=== PATIENT | female | born 1955 | race Caucasian/White ===

== ENCOUNTER 2020-03-03 10:29 | Outpatient (NON) | payer BC, SELFPAY ==
[2020-03-03 21:27] LABS: SARS-CoV-2 RNA PCR Negative
== END 2020-03-03 10:30 ==
PROVIDERS: PCP Family Medicine Adolescent Medicine; Visit Provider Family Medicine Adolescent Medicine
DX: R50.9 Fever, unspecified (principal); Z20.828 Contact with and (suspected) exposure to other viral communicable diseases
CPT/HCPCS: 87635; C9803; U0003

== ENCOUNTER → 2021-03-07 13:22 | Outpatient (CLI) | payer BC, SELFPAY ==
--- NOTE | ~2021-03-07 | MM_ITS ---
EXAMINATION: MM screening joycelyn BI w bre HISTORY: Screening mammogram, family history of breast cancer in her mother. TECHNIQUE: Craniocaudal and mediolateral oblique 3-D tomosynthesis images were obtained and synthetic 2-D images were generated. CAD analysis was submitted and interpreted. COMPARISON: 03/10/2015, 03/18/2014, 03/05/2014, 03/03/2013 BREAST PARENCHYMAL COMPOSITION: There are scattered areas of fibroglandular density. FINDINGS: There is no evidence of suspicious mass, calcification, or architectural distortion to sugg est malignancy in either breast. There has been no suspicious interval change. IMPRESSION: 1. No mammographic evidence of malignancy. 2. Recommend routine screening mammography in one year. BI-RADS Category 1: Negative Reviewed, dictated and finalized at location A.
== END ==
PROVIDERS: PCP Family Medicine; Visit Provider Obstetrics & Gynecology Gynecology
DX: Z12.31 Encounter for screening mammogram for malignant neoplasm of breast (principal)
CPT/HCPCS: 77063; 77067

== ENCOUNTER → 2022-03-08 10:34 | Outpatient (CLI) | payer BC, SELFPAY ==
--- NOTE | ~2022-03-08 | XR_ITS ---
EXAMINATION: XR knee RT 2V DATE: 03/08/2022 11:45 INDICATION: Other bursitis of knee, right knee. Medial right knee pain. TECHNIQUE: 2 views of right knee were obtained. COMPARISON: None. FINDINGS: Bone alignment is normal. No fracture. There is mild tricompartmental osteoarthritis charac terized by tiny osteophytes. No joint space narrowing. No knee joint effusion. IMPRESSION: 1. Mild right knee osteoarthritis. Reviewed, dictated and finalized at location B.
== END ==
PROVIDERS: PCP Family Medicine; Visit Provider Family Medicine
DX: M17.11 Unilateral primary osteoarthritis, right knee (principal)
CPT/HCPCS: 73560

== ENCOUNTER → 2022-03-31 14:58 | Outpatient (CLI) | payer BC, SELFPAY ==
--- NOTE | ~2022-03-31 | MM_ITS ---
EXAMINATION: MM screening joycelyn BI w bre HISTORY: Screening TECHNIQUE: Craniocaudal and mediolateral oblique 3-D tomosynthesis images were obtained and synthetic 2-D images were generated. CAD analysis was submitted and interpreted. COMPARISON: Comparison to multiple prior studies sequentially, with oldest reviewed study dated 03/03. BREAST PARENCHYMAL COMPOSITION: Breast composed of scattered areas of fibroglandular density FINDINGS: There is no evidence of suspicious mass, calcification, or architectural distortion to sugg est malignancy in either breast. There has been no suspicious interval change. IMPRESSION: 1. No mammographic evidence of malignancy. 2. Recommend routine screening mammography in one year. BI-RADS Category 1: Negative Reviewed, dictated and finalized at location A.
== END ==
PROVIDERS: PCP Family Medicine; Visit Provider Obstetrics & Gynecology Gynecology
DX: Z12.31 Encounter for screening mammogram for malignant neoplasm of breast (principal)
CPT/HCPCS: 77063; 77067

== ENCOUNTER 2022-04-17 11:00 | Outpatient (RCR) | payer BC, SELFPAY ==
--- NOTE | 2022-03-21 10:31 | PTOPEVAL ---
PHYSICAL THERAPY EVALUATION AND PLAN OF CARE Thank you for referring Maria C Cormier to [facility].? The patient is scheduled to be seen for therapy? 2x/week for 4 weeks. Please review, sign, date and return this plan of care MIRZA. I agree with and certify that the following plan of care is medically necessary. Referring Physician Date Attending Provider: Radha Hernandez MD Diagnosis right knee pain Onset 12/2021 Subjective Information no specific injury. Cannot Query Text:As Reported By Patient/ palpate the pain- feels deep Family into the joint. Was doing 3- 4mile walks every other day. Did have a day in the spring she walked 4 miles on the treadmill and then worked out in the yard. After some time she started to experience some generalized knee pain. Symptoms have been persistent and sleeping is now becoming difficult. Uses a sleeve knee brace that helps her to feel more supported. Sometimes standing feels better than sitting. Bending and prolonged straight knee are painful. Stairs and squatting are painful. has been trying to stay somewhat active around her house and she did try to walk on the treadmill for 30minutes. Right Knee(s) Reported Pain Level 7 Pain Description Aching Pain Frequency Chronic,Continuous Lowest Pain Intensity 5 Greatest Pain Intensity 9 Pain Aggravating Factors Prolonged Position Knee Range of Motion Right Knee Flexion Range of Motion - Active 130 Knee Extension Range of Motion - Active 0 Query Text: Lower Extremity Muscle Strength Testing Hip Strength Right Hip Flexion Strength 4+ Good + Hip Extension Strength 3+ Fair + Hip Abduction Strength 3 Fair Knee Strength Right Knee Flexion Strength 4 Good Knee Extension Strength 4 Good Muscle Length Testing Muscle Length Testing Gastrocnemius Length (R) Mild Tightness,(L) Mild Tightness Posture Posture Standing Position Hip Posture (R) Internally Rotated Knee Posture (R) Genu Valgus Ankle/Foot Posture (L) Neutral,(R) Neutral Palpation Assessment Palpation
--- NOTE | 2022-04-10 12:40 | PCPTNOTE ---
Pt's treatment and documentation completed by PT student Josef Walters, under supervision.
--- NOTE | 2022-04-17 11:34 | PTOPEVAL ---
PHYSICAL THERAPY DISCHARGE NOTE Thank you for referring Maria C Cormier to [facility].? Please review, sign, date and return this plan of care MIRZA. I agree with and certify that the following plan of care is medically necessary. Referring Physician Date Attending Provider: Radha Hernandez MD Diagnosis right knee pain Onset 12/2021 Subjective Information States that in general with Query Text:As Reported By Patient/ therapy she felt she was able Family to do more with less pain. Then about 10 days ago she was working in the yard and she thinks she might have twisted the knee and since then it has been significantly more pain and burning and keeping her up at night. Self Report Pain Assessment Right Knee(s) Reported Pain Level 8 Pain Description Aching,Heavy,Throbbing Pain Frequency Chronic Pain Aggravating Factors ADL's,Bending,Walking Pain Behaviors Grimacing Additional Pain Comments Patient reports pain is deep and medial to patella. Pain Score Pain Score 8: Self Report Additional Pain Score Comments patient did not give a pain rating this date Interventions Used Interventions Used By Clinicians Exercise,Manual Therapy Techniques Lower Extremity Range of Motion Knee Range of Motion Right Knee Flexion Range of Motion - Active 130 Knee Extension Range of Motion - Active -10 Query Text: Knee Range of Motion Comments unable to allow knee to go straight without significant pain Lower Extremity Muscle Strength Testing Hip Strength Right Hip Flexion Strength 5 Normal Hip Extension Strength 4- Good - Hip Abduction Strength 4- Good - Knee Strength Right Knee Flexion Strength 4+ Good + Knee Extension Strength 4 Good Knee Strength Comments fair quad set - increased pain with quad set Special Tests-Lower Extremity Knee Special Tests Magda's Negative Right Anterior Drawer Positive Right Posterior Drawer Negative Right Valgus Stress Test Knee at 0 Degrees Positive Right Varus Stress Test Knee at 0 Degrees Negative Left Extremity Circumference Assessment Circumference Assessment Location Right Body Part Knee Site Descriptor (Shinglehouse) apex of patella Circumference (cm) 19 Noninvolved Side Circumference (cm)
== END 2022-04-18 08:18 | disposition home or self-care (01) ==
LOC: ANHPT 11:00
PROVIDERS: PCP Family Medicine; Referring Provider Family Medicine; Visit Provider Family Medicine
DX: M25.569 Pain in unspecified knee (principal); M70.51 Other bursitis of knee, right knee
CPT/HCPCS: 97014; 97110; 97112; 97140; 97161; 97530; G0283

== ENCOUNTER 2022-05-12 10:27 | Outpatient (CLI) | payer BC, SELFPAY ==
--- NOTE | ~2022-05-12 | MR_ITS ---
EXAMINATION: MR knee RT wo con DATE: 05/12/2022 11:07 INDICATION: Right knee pain and swelling. TECHNIQUE: Magnetic resonance imaging (MRI) of the right knee was performed without intravenous contr ast. Sequences included axial PD-weighted FS FSE, coronal PD-weighted FSE and PD-weighted FS FSE, sag ittal PD-weighted FSE, and sagittal T2-weighted FS FSE. COMPARISON: Right knee radiographs 03/08/2022 FINDINGS: Medial compartment: There is a radial tear involving body and posterior horn of medial meniscus. There is shallow partial -thickness cartilage loss of tibial condyle and femoral condyle. Tiny osteophytes are noted. Lateral compartment: Lateral meniscus is normal. There is cartilage surface irregularity of tibial condyle and femoral con dyle. There are tiny osteophytes. Patellofemoral compartment: There is deep partial thickness cartilage loss of patellar median ridge, medial facet, and lateral fa cet with mild subchondral edema-like marrow signal intensity. There is cartilage surface irregularity of trochlea. Osteophytes are noted. Ligaments and tendons: The anterior and posterior cruciate ligaments are normal. There are changes of prior sprains of media l collateral ligament and fibular collateral ligament characterized by thickening and increased signa l intensity proximally. There is mild patellar tendinopathy. Fluid: There is no knee joint effusion. There is a small Schafer cyst. There is a 1.9 x 1.3 x 3.1 cm ganglion cyst posterior to distal femoral metaphysis that is contiguous with the Schafer cyst. IMPRESSION: 1. Moderate chondrosis of patellofemoral compartment and mild chondrosis of medial and lateral compar tments. 2. Tear of medial meniscus. 3. Small Schafer cyst. Reviewed, dictated and finalized at location A. IMPRESSION: 1. Moderate chondrosis of patellofemoral compartment and mild chondrosis of med ial and lateral compartments. 2. Tear of medial meniscus. 3. Small Schafer cyst.
== END 2022-05-12 10:28 | disposition home or self-care (01) ==
LOC: ANHIMG 10:33
PROVIDERS: PCP Family Medicine; Visit Provider Family Medicine
DX: M23.91 Unspecified internal derangement of right knee (principal); M71.21 Synovial cyst of popliteal space [Baker], right knee; M25.761 Osteophyte, right knee
CPT/HCPCS: 73721

== ENCOUNTER → 2023-04-16 13:16 | Outpatient (CLI) | payer MEDICARE, SELFPAY ==
--- NOTE | ~2023-04-16 | DEXA_ITS ---
Bone Density Report Name: EDEL HARVEY Age: 67 Sex: Female Ethnicity: White Date of : 1955 Indication: osteopenia; parental hip fracture; postmenopausal Referring Provider: SANTA CONDE Study: Bone densitometry was performed. Exam Date: April 16, 2023 Accession number: [id number] Bone Density: Region BMD T-score Z-score Classification AP Spine (L1-L4) 0.770 -2.5 -0.7 Osteoporosis Femoral Neck (Left) 0.700 -1.3 0.2 Osteopenia Total Hip (Left) 0.839 -0.8 0.4 Normal Femoral Neck (Right) 0.673 -1.6 0.0 Osteopenia Total Hip (Right) 0.792 -1.2 0.0 Osteopenia Total Hip Mean 0.816 -1.0 0.2 Normal World Health Organization criteria for BMD impression classify patients as: Normal (T-score at or above -1.0), Osteopenia (T-score between -1.0 and -2.5), or Osteoporosis (T-score at or below -2.5). 10-year Fracture Risk: FRAX not reported because: Some T-score for Spine Total or Hip Total or Femoral Neck at or below -2.5 Previous Exams: Region Exam Age BMD T-score BMD Change BMD Change Date g/cm2 vs Baseline vs Previous AP Spine(L1-L4) 04/16/2023 67 0.770 -2.5 -0.104* -0.075* 11/09/2008 53 0.845 -1.8 -0.029* -0.027* 09/14/2006 51 0.872 -1.6 -0.002 -0.002 08/18/2005 50 0.874 -1.6 Total Hip(Left) 04/16/2023 67 0.839 -0.8 -0.138* -0.054* 11/09/2008 53 0.893 -0.4 -0.083* 0.002 09/14/2006 51 0.891 -0.4 -0.085* -0.085* 08/18/2005 50 0.977 0.3 Total Hip(Right) 04/16/2023 67 0.792 -1.2 -0.157* -0.080* 11/09/2008 53 0.872 -0.6 -0.077* -0.032* 09/14/2006 51 0.903 -0.3 -0.045* -0.045* 08/18/2005 50 0.949 0.1 *Denotes significance at 95% confidence level, LSC for AP Spine = 0.022 g/cm2, LSC for Total Hip = 0.027 g/cm2 Clinical Information Provided by Patient: Parent has had a hip fracture Has used the following medications: Vitamin D, MULTI VITAMIN Patient maximum height was 62.3 Menopause Age: 46 Does not regularly consume dairy products Onset of menses at age 13 Number of children 2 Impression: The patient has osteoporosis, based on the Total Spine T-score. The patient has risk factors, including: parental hip fracture. The BMD for the AP Spine(L1-L4) decreased, changing by -0.075 since the last DXA exam. The BMD for the Total Hip(Left) decreased, jaspreet
--- NOTE | ~2023-04-16 | MM_ITS ---
EXAMINATION: MM screening joycelyn BI w bre HISTORY: Screening mammogram, family history of breast cancer in her mother. TECHNIQUE: Craniocaudal and mediolateral oblique 3-D tomosynthesis images were obtained and synthetic 2-D images were generated. CAD analysis was submitted and interpreted. COMPARISON: 03/31/2022, 03/07/2021, 03/10/2015 BREAST PARENCHYMAL COMPOSITION: There are scattered areas of fibroglandular density. FINDINGS: No suspicious mass, calcification, or architectural distortion are identified in either ezra ast to suggest malignancy. There has been no suspicious interval change. IMPRESSION: 1. No mammographic evidence of malignancy. 2. Recommend routine screening mammography in one year. BI-RADS Category 1: Negative Reviewed, dictated and finalized at location A.
== END ==
PROVIDERS: PCP Obstetrics & Gynecology Gynecology; Visit Provider Obstetrics & Gynecology Gynecology
DX: Z12.31 Encounter for screening mammogram for malignant neoplasm of breast (principal); Z78.0 Asymptomatic menopausal state; M85.89 Other specified disorders of bone density and structure, multiple sites; M81.0 Age-related osteoporosis without current pathological fracture
CPT/HCPCS: 77063; 77067; 77080

== ENCOUNTER 2023-09-11 15:46 | Emergency (ER) | payer MEDICARE, SELFPAY ==
--- NOTE | ~2023-09-11 | XR_ITS ---
EXAMINATION: XR wrist RT min 3V DATE: 09/11/2023 16:22 INDICATION: Right wrist pain post fall TECHNIQUE: Posteroanterior, ulnar deviation, oblique, and lateral views of the right wrist were obtai joann. COMPARISON: none FINDINGS: Nondisplaced intra-articular fracture at the distal right radius with subtle lucent fracture line delores r the junction of the scaphoid and lunate fossae and minimal buckling along the cortex at the dorsal/ radial metaphyseal region of the distal radius. Small minimally displaced ulnar styloid avulsion frac ture. Mild osteoarthritis at the triscaphe, first carpometacarpal, first and fifth metacarpophalangea l and first interphalangeal joints.. IMPRESSION: 1. Nondisplaced intra-articular fracture of the distal right radius. 2. Minimally displaced ulnar styloid tip avulsion fracture. 2. Mild polyarticular osteoarthritis at the right hand. Reviewed, dictated and finalized at location A. CHECKER
[2023-09-11 16:03] VITALS: BP 137/69; PULSE 88; RESP 16; TEMP 36.3; O2SAT 100
--- NOTE | 2023-09-11 16:10 | ED.UPPEXIN ---
HPI - Extremity Injury (Upper) General Chief Complaint: Extremity Injury, Upper Stated Complaint: fall/ upper extemity injury Time Seen by Provider: 09/11/23 16:10 Source: patient and RN notes reviewed Mode of arrival: ambulatory Limitations: no limitations History of Present Illness HPI narrative: 68-year-old female presents concern for right wrist pain. Reports prior to arrival she tripped and fell over a stool and landed on her right arm. Reports right wrist pain, reports she has been using ice. She denies decreased strength, sensation, range of motion in the hand or digits. MD complaint: injury to: right and wrist Related Data Home Medications Medication Instructions Recorded Confirmed levothyroxine 75 mcg capsule 75 mcg PO DAILY 10/19/20 09/11/23 Allergies Allergy/AdvReac Type Severity Reaction Status Date / Time codeine AdvReac Intermediate Nausea and Verified 09/11/23 16:11 Vomiting MEPERIDINE HCL AdvReac Intermediate NAUSEA/VOMI Uncoded 09/11/23 16:11 TING Review of Systems Review of Systems: CONSTITUTIONAL: Denies malaise, chills, sweats, or fever. SKIN: Denies rash or itching, open skin, laceration, abrasion, redness, warmth, swelling. MUSCULOSKELETAL: Reports right wrist pain NEUROLOGIC: Denies numbness, weakness All systems reviewed & are unremarkable except as noted in HPI and below PMFSH Past Medical History Medical History Hypothyroidism (acquired) Hypovitaminosis D MDD (major depressive disorder) Family History Family History Mother Family history of diabetes mellitus in first degree relative Family history of arthritis Family history of malignant neoplasm Other Asthma Breast cancer Heart disease Hyperlipidemia Hypertension Neuropathy Social History Social History (Updated 05/31/23 @ 10:00 by Tena Jamil) Social History: Smoking status: Never smoker Second hand tobacco smoke exposure: No Alcohol intake: never Substance use: never Substance use type: does not use Lack of Transportation: No Lack of Food: Never True Current Housing: I Have Housing Concerned About Future Housing: No Difficulty Paying Gas/Electric Bills: No Difficulty Paying for Meds: No Currently Unemployed: YES Education: Bachelor's Degree Difficulty w/ Childcare or Family Care: No Living arrangements: alone Occupation/Education: retired Additional occupation/education comments: Pt is retired from Teaching. Gender identity (if verbalized by the patient): Female Sexual Orientation (if Verbalized by the Patient): Straight or Heterosexual Spiritual care concerns: No Comments At time of signature, agree with nursing past medical, surgical, social and family history. There is no relevant family history pertinent to the presenting complaint Exam Narrative: GENERAL: Well-appearing, well-nourished, and in no acute distress. HEAD: Normocephalic, atraumatic. EYES: PERRLA, conjunctivae clear NECK: Supple. CHEST: Speaks in full sentences. No respiratory distress. HEART: Regular rate and rhythm. Normal and equal peripheral pulses. EXTREMITIES: Right wrist has normal sensation, limited range of motion, likely due to pain. No edema or ecchymosis. Normal sensation with sensitivity to light touch and pain. Bilateral wrist tenderness. no elbow tenderness. No open wounds, no skin tenting, no devitalized tissue or atrophy, no trophic changes, no obvious deformity, alignment normal, nearby joints and structures intact. Distal pulses palpable and equal bilaterally, skin warm, dry, pink. Capillary refill less than 3 seconds. SKIN: Warm, dry, no rash. NEURO: Alert and oriented x3. PSYCH: Normal mood and affect Course Course Emergency Course: Patient is aware of diagnosis, understands and agrees to treatment plan. Anticipatory guidance given. Mel
== END 2023-09-11 16:50 | disposition home or self-care (01) ==
PROVIDERS: Emergency Provider Nurse Practitioner; PCP Family Medicine
DX: S52.501A Unspecified fracture of the lower end of right radius, initial encounter for closed fracture (principal); S52.611A Displaced fracture of right ulna styloid process, initial encounter for closed fracture; E03.9 Hypothyroidism, unspecified; Z79.899 Other long term (current) drug therapy; W01.0XXA Fall on same level from slipping, tripping and stumbling without subsequent striking against object, initial encounter
CPT/HCPCS: 29125; 73110; 99214; A4565; G0463

== ENCOUNTER 2024-06-12 10:27 | Outpatient (CLI) | payer MEDICARE, SELFPAY ==
--- NOTE | ~2024-06-12 | MM_ITS ---
EXAMINATION: MM screening joycelyn BI w bre HISTORY: Screening mammogram, family history of breast cancer in her mother. TECHNIQUE: Craniocaudal and mediolateral oblique 3-D tomosynthesis images were obtained and synthetic 2-D images were generated. CAD analysis was submitted and interpreted. COMPARISON: 04/16/2023, 04/12/2022, 03/07/2021 BREAST PARENCHYMAL COMPOSITION:Not Dense. There are scattered areas of fibroglandular density. FINDINGS: No suspicious mass, calcification, or architectural distortion are identified in either ezra ast to suggest malignancy. There has been no suspicious interval change. IMPRESSION: No mammographic evidence of malignancy. Recommend routine screening mammography in one year. BI-RADS Category 1: Negative Reviewed, dictated and finalized at location .
== END 2024-06-12 10:28 | disposition home or self-care (01) ==
LOC: MICIMG 10:28
PROVIDERS: PCP Family Medicine; Visit Provider Obstetrics & Gynecology Gynecology
DX: Z12.31 Encounter for screening mammogram for malignant neoplasm of breast (principal)
CPT/HCPCS: 77063; 77067

== ENCOUNTER 2025-06-15 11:29 | Outpatient (CLI) | payer MEDICARE, SELFPAY ==
--- NOTE | ~2025-06-15 | MM_ITS ---
EXAMINATION: MM screening joycelyn BI w bre HISTORY: Screening TECHNIQUE: Craniocaudal and mediolateral oblique 3-D tomosynthesis images were obtained and synthetic 2-D images were generated. CAD analysis was submitted and interpreted. COMPARISON: Comparison to multiple prior studies sequentially, with oldest reviewed study dated , 03/10/2015 BREAST PARENCHYMAL COMPOSITION: There are scattered areas of fibroglandular density. FINDINGS: There is no evidence of suspicious mass, calcification, or architectural distortion to suggest malignancy in either breast. IMPRESSION: 1. No mammographic evidence of malignancy. 2. Recommend routine screening mammography in one year. BI-RADS Category 1: Negative Reviewed, dictated and finalized at location B.
== END 2025-06-15 11:30 | disposition home or self-care (01) ==
LOC: MICIMG 11:30
PROVIDERS: PCP Family Medicine; Visit Provider Obstetrics & Gynecology Gynecology
DX: Z12.31 Encounter for screening mammogram for malignant neoplasm of breast (principal)
CPT/HCPCS: 77063; 77067